=== PATIENT | male | born 1990 | race Caucasian/White ===

== ENCOUNTER 2025-01-28 10:34 | Emergency (ER) | payer BC ==
[2025-01-28] MEDS ORDERED: niCARdipine 25 MG/10 ML SDV ONE ×3 (10:45→13:13)
[2025-01-28 11:12] LABS: #Basophils Less than 0.03 10x3/uL (0.0-0.2); #Eosinophils 0.03 10x3/uL (0.0-0.7); #Monocytes 1.33 10x3/uL (0.11-0.59); #Neutrophils 11.34 10x3/uL (1.40-6.50); %Basophils 0.1 % (0.0-1.0); %Eosinophils 0.2 % (0.0-10.0); %Lymphocytes 14.0 % (21.0-51.0); %Monocytes 9.0 % (0.0-10.0); %Neutrophils 76.4 % (42.0-75.0); Hematocrit 48.3 % (42.0-52.0); Hemoglobin 16.5 g/dL (14.0-18.0); Mean Corpuscular Hemoglobin 30.2 pg (27.0-31.0); Mean Corpuscular Volume 88.3 fL (78.0-98.0); Platelet Count 234 10x3/uL (130-400); Red Blood Cell (RBC) Count 5.47 mill/uL (4.70-6.10); White Blood Cell (WBC) Count 14.85 10x3/uL (4.8-10.8)
[2025-01-28 11:30] LABS: Magnesium 1.8 mg/dL (1.6-2.6)
[2025-01-28 11:31] LABS: ALT (SGPT) 39 U/L (Less than 45); AST (SGOT) 39 U/L (11-34); Acetaminophen Less than 10 mcg/mL (Less than 10); Albumin 4.0 g/dL (3.1-4.5); Alkaline Phosphatase 49 U/L (40-110); Anion Gap 22 mmol/L (10-20); BUN (Urea Nitrogen) 13 mg/dL (8.9-20.6); Bilirubin, Total 0.7 mg/dL (0.3-1.2); Calc. Creatinine Clearance 0 mL/min (70-130); Calcium 9.4 mg/dL (7.8-10.44); Carbon Dioxide 19 mmol/L (22-29); Chloride 107 mmol/L (98-107); Globulin 3.3 g/dL (2.4-3.5); Glucose 145 mg/dL (70-105); Potassium 3.6 mmol/L (3.5-5.1); Salicylate Less than 8.0 mg/dL (Less than 8.0); Sodium 144 mmol/L (136-145)
[2025-01-28 11:35] LABS: INR-International Normal Ratio 1.1; Prothrombin Time 14.0 sec (12.0-14.7)
[2025-01-28 11:36] LABS: PTT 24.6 sec (22.9-36.1)
[2025-01-28 12:04] LABS: Cocaine Metabolite Screen Negative (Negative); THC/Cannabinoid Screen Negative (Negative); Tricyclic Screen Negative (Negative)
[2025-01-28] MEDS ORDERED: Mannitol 12.5 GM/50 ML ONE (12:49)
[2025-01-28] MEDS ORDERED: Iopamidol-370 76% 500 ML MDV (1 ML CHARGE) ONE (13:22)
== END 2025-01-28 13:34 | disposition short-term general hospital (02) ==
LOC: ERS 10:34
DX: I67.1 Cerebral aneurysm, nonruptured (principal); I60.9 Nontraumatic subarachnoid hemorrhage, unspecified; I61.8 Other nontraumatic intracerebral hemorrhage
CPT/HCPCS: 36415; 51702; 70450; 70496; 70498; 80053; 80306; 80307; 83735; 85025; 85610; 85730; 93005; 96374; 96375; 96376; J2060; J2150; J7799; Q9967